=== PATIENT | male | born 1980 | race Caucasian/White ===

== ENCOUNTER 2018-08-20 04:56 | Observation (INO) | payer BC ==
[2018-08-20] MEDS ORDERED: Loratadine 10 MG TAB PO PRN (07:30)
[2018-08-20] MEDS ORDERED: Bisacodyl 10 MG SUPP PR PRN (07:30)
[2018-08-20] MEDS ORDERED: Calcium Carbonate 500 MG ChewTAB PO PRN (07:30)
[2018-08-20] MEDS ORDERED: Acetaminophen 325 MG TAB PO PRN (07:30)
[2018-08-20] MEDS ORDERED: Eucerin (Mineral Oil/Petrolatum,White) 30 gm Jar TOP PRN (07:30)
[2018-08-20] MEDS ORDERED: Ondansetron PF 4 MG/2 ML Vial IVP PRN (07:30)
[2018-08-20] MEDS ORDERED: Cepastat Lozenges 1 LOZ PO PRN (07:30)
[2018-08-20] MEDS ORDERED: Sodium Chloride 0.65% Nasal 44 ML BOT EA NARE PRN (07:30)
[2018-08-20] MEDS ORDERED: Zolpidem Tartrate 5 MG TAB PO PRN (07:30)
[2018-08-20] MEDS ORDERED: Artificial Tears 18 DROP/0.9 ML EA EYE PRN (07:30)
[2018-08-20] MEDS ORDERED: Senokot S 8.6-50 MG TAB PO PRN (07:30)
[2018-08-20] MEDS ORDERED: Loperamide HCl 2 MG CAP PO PRN ×2 (07:30)
[2018-08-20] MEDS ORDERED: Ondansetron ODT 4 MG TAB PO PRN (07:30)
[2018-08-20] MEDS ORDERED: Diabetic Tussin 200 MG/10 ML UDCUP PO PRN (07:30)
[2018-08-20] MEDS ORDERED: HYDROcodone/Acetaminophen 5/325 mg Tablet PO PRN (07:30)
[2018-08-20] MEDS ORDERED: hydrALAZINE 20 MG/ML VIAL SLOW IVP PRN (07:30)
[2018-08-20 09:08] LABS: #Eosinphils 0.1 thou/uL (0.0-0.7); #Lymphocytes 1.7 thou/uL (1.20-3.40); #Monocytes 0.9 thou/uL (0.11-0.59); #Neutrophils 6.6 thou/uL (1.40-6.50); %Basophils 0.3 % (0.0-1.0); %Eosinophils 0.6 % (0.0-10.0); %Lymphocytes 17.9 % (21.0-51.0); %Monocytes 9.5 % (0.0-10.0); %Neutrophils 71.8 % (42.0-75.0); Hemoglobin 14.1 g/dL (14.0-18.0); Mean Corpuscular Hemoglobin 31.1 pg (27.0-31.0); Mean Corpuscular Volume 91.6 fL (78.0-98.0); Mean Platelet Volume 7.7 fL (7.4-10.4); Platelet Count 212 thou/uL (130-400); RBC Distribution Width 11.7 % (11.5-14.5); Red Blood Cell (RBC) Count 4.51 mill/uL (4.70-6.10); White Blood Cell (WBC) Count 9.3 thou/uL (4.8-10.8)
[2018-08-20] MEDS ORDERED: Famotidine 20 MG TAB ONE (09:15)
[2018-08-20] MEDS: Famotidine 20 MG TAB PO SCH ×2 (09:20→23:22)
[2018-08-20 09:31] LABS: Anion Gap 14 mmol/L (10-20); BUN (Urea Nitrogen) 17 mg/dL (8.9-20.6); CRP (Inflammatory) 1.67 mg/dL (= or < 0.5); Calc. Creatinine Clearance 0 mL/min (70-130); Calcium 9.9 mg/dL (7.8-10.44); Carbon Dioxide 24 mmol/L (22-29); Chloride 104 mmol/L (98-107); Estimated GFR-MDRD 67; Glucose 98 mg/dL (70-105); Potassium 4.2 mmol/L (3.5-5.1); Sodium 138 mmol/L (136-145)
[2018-08-20] MEDS: Vancomycin HCl 1.25 GM in Sodium Chloride 0.9% 250 ML 250 ML IVPB SCH ×2 (10:36→21:41)
--- NOTE | 2018-08-20 12:26 | HP ---
PRIMARY CARE PHYSICIAN: [facility] Call admission. REASON FOR ADMISSION: Cellulitis. HISTORY OF PRESENT ILLNESS: A 38-year-old male, who has previous history of hypertension. He is not taking any medication, who presented to emergency room at [facility] in [place] with acute onset of pain and swelling in the lower part of neck. He has no clue how that started, but he noticed that yesterday morning. His pain intensity over that area is 5/10. He denies any fever or chills. He denies any dysphagia. He denies any hoarseness of voice. He denies any stridor. He denies any respiratory difficulty. The patient did not have any fever or chills. He noticed mild surrounding redness and that is why he went to see a physician in the emergency room. In [place] [facility], the patient had CT soft tissue neck, which showed mild edema of subcutaneous tissue in lower anterior neck and upper anterior chest. There was mainly concern for cellulitis. The patient denies any unusual medication or any allergic reaction. He denies any insect bite. He denies any trauma. He did not notice any change in his voice or swallowing function. Routine blood test in the [place] [facility] was unremarkable except elevated ESR. He was given vancomycin and Zosyn and subsequently, he was transferred to our hospital for further evaluation. When I saw this patient in the morning, he was feeling completely better. He has very little amount of pain in his lower neck. He does have surrounding erythema , which he attributes due to photosensitivity. He denies any joint pain. REVIEW OF SYSTEMS: CONSTITUTIONAL: Negative for weight loss or gain, ability to conduct usual activities. SKIN: Negative for rash, itching. EYES: Negative for double vision, pain. ENT/MOUTH: Negative for nose bleeding, neck stiffness, pain, tenderness. CARDIOVASCULAR: Negative for palpitations, dyspnea on exertion, orthopnea. RESPIRATORY: Negative for shortness of breath, wheezing, cough, hemoptysis, fever or night sweats. GASTROINTESTINAL: Negative for poor appetite, abdominal pain, heartburn, nausea , vomiting, constipation, or diarrhea. GENITOURINARY: Negative for urgency, frequency, dysuria, nocturia. MUSCULOSKELETAL: Negative for pain, swelling. NEUROLOGIC/PSYCHIATRIC: Negative for anxiety, depression. ALLERGY/IMMUNOLOGIC: Negative for skin rash, bleeding tendency. Please see my HPI for pertinent positive and negative, all other review of systems reviewed and negative except as mentioned in HPI. PAST MEDICAL HISTORY: History of hypertension, but the patient is not taking any medication. He was prescribed Coreg in past, but Coreg was making him weak and that is why he stopped taking by himself. PAST SURGICAL HISTORY: Appendicectomy, right rotator cuff repair, femur fracture when he was age [age], required repair. PAST PSYCHIATRIC HISTORY: Reviewed and negative. SOCIAL HISTORY: The patient drinks alcohol socially. He denies any smoking. He denies any illicit drug abuse. FAMILY HISTORY: No family history of coronary artery disease, stroke, or cancer. ALLERGIES: NO KNOWN DRUG ALLERGY. CURRENT HOME MEDICATIONS: The patient is not taking any prescribed or non-prescribed medication. EMERGENCY ROOM COURSE: The patient was given vancomycin 1 g, Zosyn 3.375 mg, Lopressor 25 mg p.o. PHYSICAL EXAMINATION: VITAL SIGNS: On arrival, blood pressure 177/107, pulse 92, respiratory rate 16, temperature 98.7, and saturation 98% on room air. Weight 88.4 kg. GENERAL: The patient is currently alert, awake. No obvious acute distress. HEENT: Head; normocephalic, atraumatic. Eyes; pupils are round, reactive to light. Extraocular muscle intact. ENT, oropharynx within normal limit. Moist mucous membranes. No oral lesion. No pharyngeal erythema. No exudate. NECK: Supple. At lower part of neck, the patient does have mild soft tissue swelling, which is mildly tender with surrounding mild erythema at sternal notch , no fluctuance, no gas. LUNGS: Clear to auscultation without any rhonchi or rales. CARDIAC: S1 and S2 regular without any murmur. ABDOMEN: Soft. Bowel sounds present. Nontender. Nondistended. No organomegaly. No mass. No suprapubic tenderness. BACK: Examination, unremarkable. No CVA tenderness. EXTREMITIES: Upper extremities; passive movement of all joints are normal. Lower extremity, no edema. Good distal pulsation. SKIN: No skin rash. HEMATOLOGIC: No lymphadenopathy. NEUROLOGIC: Nonfocal examination. SIGNIFICANT LABORATORY DATA: CT soft tissue neck reported as soft tissue swelling at low anterior neck and upper anterior chest, most likely consistent with cellulitis. No lymphadenopathy. Chest x-ray based on my review, no acute cardiopulmonary process. CBC; WBC 9.3, hemoglobin 14.1, platelet 212. BMP; sodium 138, potassium 4.2, chloride 104, carbon dioxide 24, BUN 17, and creatinine 1.20 , CRP calcium 9.9, ESR greater than 120. Trop cardiac enzyme negative. LFT normal. ASSESSMENT AND PLAN: 1. Cellulitis, lower neck. We will treat him with vancomycin and Zosyn today and we will consider changing to oral antibiotic therapy. At this point, based on clinical examination and radiological investigation. Nothing concerning. He will need outpatient followup after discharge. His pain will be controlled with pain medication while in hospital. 2. History of hypertension without any medication. We will monitor his blood pressure while in hospital and upon discharge, we will consider giving him amlodipine 5 or 10 mg p.o. daily depending upon his vitals. 3. Deep venous thrombosis prophylaxis not needed because we are expecting discharge in 24 hours. 4. Gastrointestinal prophylaxis. Pepcid 20 mg p.o. b.i.d. CODE STATUS: The patient is full code. The patient does not have any surrogate decision maker. He makes his decision by himself. DISPOSITION: Plan of care discussed with the patient and his family member at bedside in the emergency room in detail. Job ID: [id number] [facility]
[2018-08-20] MEDS: Piperacillin/Tazobactam 3.375 GM in Sodium Chloride 0.9% 100 ML IVPB SCH ×2 (12:50→21:26)
[2018-08-20] MEDS ORDERED: HYDROcodone/Acetaminophen 5/325 mg Tablet ONE (17:17)
[2018-08-20] MEDS ORDERED: Piperacillin/Tazobactam 3.375 GM VIAL ONE (19:57)
[2018-08-20 21:09] VITALS: BMI 32.0
[2018-08-21] MEDS: Piperacillin/Tazobactam 3.375 GM in Sodium Chloride 0.9% 100 ML IVPB SCH ×2 (01:02→06:06)
[2018-08-21] MEDS: Famotidine 20 MG TAB PO SCH (09:33)
[2018-08-21] MEDS: Vancomycin HCl 1.25 GM in Sodium Chloride 0.9% 250 ML 250 ML IVPB SCH (09:40)
--- NOTE | 2018-08-21 10:24 | DIS ---
DATE OF ADMISSION: 08/20/2018 DATE OF DISCHARGE: 08/21/2018 PRIMARY CARE PHYSICIAN: Dr. Tavia Pelayo. DISCHARGE DISPOSITION: Home. PRIMARY DISCHARGE DIAGNOSES: Cellulitis, lower part of the neck and upper part of chest around sternal notch. SECONDARY DISCHARGE DIAGNOSES: 1. History of hypertension. 2. Obesity with BMI 32. PRIMARY PROCEDURE/OPERATION: None. RADIOLOGICAL INVESTIGATION: Chest x-ray on admission showed no acute cardiopulmonary process. CT soft tissue neck showed soft tissue swelling at sternal notch. SIGNIFICANT LABS: WBC 9.3, hemoglobin 14.1, platelet 212. Sodium 138, potassium 4.2, BUN 17, creatinine 1.20, calcium 9.9. CRP 1.67. DISCHARGE MEDICATION: Keflex 500 mg p.o. t.i.d. for 7 days. CONTRAINDICATION: None. CODE STATUS: Full code. INPATIENT LEAD SOFTWARE DEVELOPER: None. ALLERGIES: NO KNOWN DRUG ALLERGIES. DISCHARGE PLAN: Posthospital, the patient will follow up with primary care physician in 1 week. HOSPITAL COURSE: A 38-year-old male, who was initially evaluated at [facility], where he went for a focal pain in lower part of neck and upper part of the chest at sternal notch. It was erythematous and slightly tender. Over there at [place] [facility], the patient had CT soft tissue of the neck which did not show any significant worrisome finding, but it did show soft tissue swelling. We suspected focal cellulitis. He has elevated ESR and mildly elevated CRP. While in hospital, his pain was controlled. He was treated with vancomycin and Zosyn. On discharge, we changed to Keflex. This patient does not have any clinical finding of worrisome at this point, no gas, no fluctuance. I advised him to try antibiotic therapy for 1 week and if he has no improvement, then he is advised to follow up as an outpatient basis with ENT. The patient is seen and examined at bedside today. His vitals are stable. His blood pressure is 138/94, temperature 98.9, pulse 53, saturation 95% on room air. His examination is normal. He has only focal tenderness and mild swelling with mild erythema over sternal notch. He does not have any dysphagia, difficulty swallowing or difficulty breathing. He does not have any throat pain. At this point, the patient is medically stable. We advised him to follow up with primary care physician to decide about antihypertensive medication. While in the hospital, we did not see any significant hypertension, but he does have previous history of hypertension that is why we advised him to monitor blood pressure as an outpatient basis and follow up with primary care physician for prescription if needed. Job ID: [id number]
[2018-08-21 11:25] VITALS: BP 125/87; TEMP 98.2
[2018-08-21 11:35] LABS: Hemoglobin 13.2 g/dL (14.0-18.0); Platelet Count 189 thou/uL (130-400)
== END 2018-08-21 12:33 | disposition home or self-care (01) ==
LOC: ERS 04:56 → ERHOLD 06:56 → 2SW 20:45
PROVIDERS: ADMIT Internal Medicine; ATTEND Internal Medicine
DX: L03.221 Cellulitis of neck (principal); L03.313 Cellulitis of chest wall; I10 Essential (primary) hypertension; E66.9 Obesity, unspecified; Z68.32 Body mass index [BMI] 32.0-32.9, adult
CPT/HCPCS: 36415; 82565; 85014; 85018; 85049; 86140; 96365; 96366; 96367; 96374; 96376; G0378; J2543; J3370; J7050